=== PATIENT | male | born 1975 | race Caucasian/White ===

== ENCOUNTER 2016-04-07 03:58 | Emergency (ER) | payer OTHER ==
[2016-04-07 06:19] LABS: BASO % 0.2 % (0.0-1.0); EOS # 0.2 K/mm3 (0.0-0.50); EOS % 0.9 % (0.0-3.0); LARGE UNSTAINED CELL # 0.2 K/mm3 (0.0-0.4); LARGE UNSTAINED CELL % 0.9 % (0.0-4.0); LYMPH # 1.2 K/mm3 (1.5-4.5); LYMPH % 6.9 % (24.0-44.0); MEAN CORPUSCULAR HEMOGLOBIN 29.8 pg (27.0-33.0); MEAN CORPUSCULAR HGB CONC 35.2 g/dl (32.0-36.5); MEAN CORPUSCULAR VOLUME 84.5 fl (80.0-96.0); MONO # 0.6 K/mm3 (0.0-0.8); MONO % 3.6 % (0.0-5.0); NEUTROPHILS # 14.7 K/mm3 (1.8-7.7); NEUTROPHILS % 87.5 % (36.0-66.0); PLATELET COUNT, AUTOMATED 353 k/mm3 (150-450); RED CELL DISTRIBUTION WIDTH 12.2 % (11.5-14.5); WHITE BLOOD COUNT 16.8 K/mm3 (4.0-10.0)
[2016-04-07] MEDS ORDERED: KETOROLAC 30 MG/ML VIAL (J1885) As Ordered ONE (06:25)
[2016-04-07] MEDS ORDERED: COLCHICINE 0.6 MG TAB As Ordered ONE ×2 (06:25→07:15)
[2016-04-07 06:38] LABS: ANION GAP 9 MEQ/L (8-16); BLOOD UREA NITROGEN 16 MG/DL (7-18); CALCIUM LEVEL 9.6 MG/DL (8.5-10.1); CARBON DIOXIDE LEVEL 27 MEQ/L (21-32); CHLORIDE LEVEL 102 MEQ/L (98-107); CREATININE FOR GFR 1.14 MG/DL (0.70-1.30); GLOMERULAR FILTRATION RATE > 60.0 (>60); GLUCOSE, FASTING 146 MG/DL (70-105); POTASSIUM SERUM 4.5 MEQ/L (3.5-5.1); SODIUM LEVEL 138 MEQ/L (136-145); URIC ACID 8.3 MG/DL (3.5-7.2)
--- NOTE | 2016-04-07 07:23 | EDDOCDS ---
Physician Documentation [facility] Name: Channing Stock Age: 40 yrs Sex: Male : 1975 Arrival Date: 04/07/2016 Time: 03:58 Bed 10 Private MD: Disposition: 04/07/16 07:04 Discharged to Home/Self Care. Impression: Gout - Gout of Left Hand and Wrist. Foreign body adjacent to 1st MTP joint of Left Hand.. - Condition is Stable. - Discharge Instructions: Gout, Gout, [id number]. - Prescriptions for indomethacin 50 mg Oral Capsule - take 1 capsule by ORAL route 3 times per day with food; 30 capsule. - Medication Reconciliation, Local Pharmacy Hours form. - Follow up: Froy Carlin MD; When: Call to arrange an appointment; Reason: Recheck today's complaints, Continuance of care, To establish care. Follow up: [facility]; When: Call to arrange an appointment; Reason: Recheck today's complaints, Continuance of care. - Problem is an acute exacerbation. - Symptoms have improved. Historical: - Allergies: PENICILLINS; - Home Meds: 1. Worthy Supplement 1 tab twice a day (Last dose: 04/06/2016) - PMHx: Gout; - PSHx: none; - Social history: Smoking status: Patient states former smoker of tobacco. No barriers to communication noted, The patient speaks fluent Pashto, Speaks appropriately for age. - : The pt / caregiver states he / she is not on anticoagulants. Home medication list is obtained from the patient. - Exposure Risk Screening:: None identified. Vital Signs: 04/07 04:12 BP 146 / 91; Pulse 86; Resp 18; Temp 98.9(O); Pulse Ox 96% on R/A; Weight 86.18 kg / kmg1 189.99 lbs (R); Height 5 ft. 9 in. (175.26 cm) (R); Pain 10/10; 07:20 BP 134 / 86; Pulse 93; Resp 18; Temp 99(O); Pulse Ox 97% on R/A; Pain 5/10; jjr 04:12 Body Mass Index 28.06 (86.18 kg, 175.26 cm) kmg1 MDM: 05:54 ketorolac 60 mg IM once ordered. gk1 05:54 colchicine 1.2 mg PO once ordered. gk1 05:58 Financial registration complete. hs2 05:58 CRP Ordered. EDMS 05:58 CBC with Diff Ordered. EDMS 05:58 BMP Ordered. EDMS 05:58 Uric Acid Ordered. EDMS 05:59 Hand, Complete Ordered. EDMS 06:43 CRP Reviewed. mm11 06:43 CBC with Diff Reviewed. mm11 06:43 BMP Reviewed. mm11 06:43 Uric Acid Reviewed. mm11 07:00 colchicine 0.6 mg PO once ordered. gk1 Administered Medications: 06:30 Drug: ketorolac 60 mg [ketorolac 30 mg/mL (1 mL) injection solution (2 mL)] Route: IM; kas2 Site: right deltoid; 06:30 Drug: colchicine 1.2 mg Route: PO; kas2 07:20 Drug: colchicine 0.6 mg Route: PO; ejjr Signatures: Dispatcher [employer] EDYvette Blood RN RN kmg1 Joshua Coronel, DO DO mm11 Ale Cho RN RN jjr Ginette Vogel, Reg Reg hs2 Rolly Mahmood, DO DO gk1 Celeste Johansen RN kas2 MTDD
--- NOTE | 2016-04-07 07:23 | EDDOCDS ---
Nurse's Notes [facility] Name: Channing Stock Age: 40 yrs Sex: Male : 1975 Arrival Date: 04/07/2016 Time: 03:58 Bed 10 Private MD: Diagnosis: Gout-Gout of Left Hand and Wrist. Foreign body adjacent to 1st MTP joint of Left Hand. Presentation: 04/07 04:09 Presenting complaint: Patient states: "My gout flared up." Has been worsening over the km last 5 days. Tonight unable to move left wrist without pain. Suicide/Homicide risk assessment- the patient denies having any suicidal and/or homicidal ideations and does not present with any other emotional, behavioral or mental health complaints. 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 Transition of care: patient was not received from another setting of care. 04:09 Acuity: VICTORINO Level 4 [facility] [place]:09 Method Of Arrival: Walkin/Carried/Asstd [facility] 07:21 Adult Sepsis Screening: The patient does not have new or worsening altered mentation. jjr Patient's respiratory rate is less than 22. Systolic blood pressure is greater than 100. Patient has a qSOFA score of 0- Negative Sepsis Screen. Triage Assessment: 04:12 General: Appears in no apparent distress, uncomfortable, Behavior is appropriate for [facility] age, cooperative, pleasant. Pain: Location: dorsal aspect of left wrist and palmar aspect of left wrist Pain currently is 10 out of 10 on a pain scale. Quality of pain is described as sharp. HIV screening NA for this visit Offered previously. Musculoskeletal: Circulation, motion, and sensation intact Capillary refill < 3 seconds Reports pain in lateral aspect of left wrist and medial aspect of left wrist. Historical: - Allergies: PENICILLINS; - Home Meds: 1. Worthy Supplement 1 tab twice a day (Last dose: 04/06/2016) - PMHx: Gout; - PSHx: none; - Social history: Smoking status: Patient states former smoker of tobacco. No barriers to communication noted, The patient speaks fluent French, Speaks appropriately for age. - : The pt / caregiver states he / she is not on anticoagulants. Home medication list is obtained from the patient. - Exposure Risk Screening:: None identified. Screenin:24 Screening information is obtained from the patient. Fall risk: No risks identified. kas2 Assistance ADL's: requires no assistance with activities of daily living. Abuse/DV Screen: The patient / caregiver reports he/she is: not in a situation that causes fear, pain or injury. Nutritional screening: No deficits noted. Advance Directives: Currently, there is no health care proxy. There is no active DNR order. There is no living will. There is no Power of Ampoule Sealer. home support is adequate. Assessment: 04:23 General: Appears in no apparent distress, uncomfortable, well nourished, well groomed, [facility] Behavior is appropriate for age, cooperative. Pain: Location: medial aspect of left wrist and lateral aspect of left wrist and left hand and palmar aspect of left wrist and dorsal aspect of left wrist Pain currently is 7 out of 10 on a pain scale. Neurological: Level of Consciousness is awake, alert, Oriented to person, place, time. Cardiovascular: Rhythm is regular. Respiratory: Airway is patent Respiratory effort is even, unlabored, Respiratory pattern is regular, symmetrical, Breath sounds are clear bilaterally. Derm: Skin is intact, Skin is dry, Skin is pink, warm & dry. Skin temperature is warm. Musculoskeletal: Circulation, motion, and sensation intact Capillary refill < 3 seconds Range of motion limited in medial aspect of left wrist and lateral aspect of left wrist and left hand and palmar aspect of left wrist and dorsal aspect of left wrist. Injury Description: No known injury. 05:45 General: Patient sitting in bed. No apparent distress noted. Appears comfortable at [facility] this time. Call herzog within reach. Will continue to monitor.. 06:30 General: Appears in no apparent distress, uncomfortable, Behavior is appropriate for [facility] age, cooperative. Pain: Location: medial aspect of left wrist and lateral aspect of left wrist and left hand and palmar aspect of left wrist and dorsal aspect of left wrist Pain currently is 4 out of 10 on a pain scale. Neurological: Level of Consciousness is awake, alert, Oriented to person, place, time. Respiratory: Airway is patent Respiratory effort is even, unlabored, Respiratory pattern is regular, symmetrical. Derm: Skin is intact, Skin is dry, Skin is pink, warm & dry. Skin temperature is warm. 07:21 General: Appears in no apparent distress, Behavior is appropriate for age. Pain: jjr Location: dorsal aspect of left wrist and palmar aspect of left wrist Pain currently is 5 out of 10 on a pain scale. Vital Signs: 04:12 BP 146 / 91; Pulse 86; Resp 18; Temp 98.9(O); Pulse Ox 96% on R/A; Weight 86.18 kg (R); [facility] Height 5 ft. 9 in. (175.26 cm) (R); Pain 10/10; 07:20 BP 134 / 86; Pulse 93; Resp 18; Temp 99(O); Pulse Ox 97% on R/A; Pain 5/10; jjr 04:12 Body Mass Index 28.06 (86.18 kg, 175.26 cm) [facility] Vitals: 04:12 Log In Time: April 07, 2016 at 04:00. [facility] ED Course: 03:59 Patient visited by Ginette Vogel Reg. hs2 03:59 Patient moved to Waiting hs2 04:11 Triage Initiated [facility] 04:16 Patient visited by Yvette Leahy RN. [facility] 04:16 Patient moved to 10 km 04:25 Patient visited by Celeste Johansen RN. kas2 04:28 Celeste Johansen RN is Primary Nurse. kas2 05:04 Patient visited by Celeste Johansen RN. kas2 05:28 Rolly Mahmood DO is PHCP. gk1 05:28 Joshua Coronel DO is Attending Physician. gk1 05:43 Patient visited by Celeste Johansen RN. kas2 05:46 Patient visited by Celeste Johansen RN. kas2 05:55 Patient visited by Joshua Coronel DO. mm11 06:13 Uric Acid Sent. mdr 06:13 BMP Sent. mdr 06:13 CBC with Diff Sent. mdr 06:13 CRP Sent. mdr 06:31 Patient visited by Celeste Johansen RN. kas2 06:54 Patient visited by Celeste Johansen RN. kas2 07:01 Froy Carlin MD is Referral Physician. gk1 07:02 [facility] is Referral Physician. gk1 07:21 No IV's were initiated during this patient's visit. No procedures done that require jjr assistance. 07:22 The patient / caregiver is instructed regarding the plan of care and ED course. jjr Administered Medications: 06:30 Drug: ketorolac 60 mg [ketorolac 30 mg/mL (1 mL) injection solution (2 mL)] Route: IM; [facility] Site: right deltoid; 06:30 Drug: colchicine 1.2 mg Route: PO; [facility] 07:20 Drug: colchicine 0.6 mg Route: PO; jjr Order Results: Lab Order: CRP; SPEC04/07/16 06:09 Test: C REACTIVE PROTEIN QUANTITATIV; Value: 2.74; Range: 0.00-0.30; Abnormal: Above high normal; Units: MG/DL; Status: F Lab Order: CBC with Diff; 04/07/16 06:09 Test: WHITE BLOOD COUNT; Value: 16.8; Range: 4.0-10.0; Abnormal: Above high normal; Units: K/mm3; Status: F Test: RED BLOOD COUNT; Value: 5.86; Range: 4.30-6.10; Units: M/mm3; Status: F Test: HEMOGLOBIN; Value: 17.4; Range: 14.0-18.0; Units: g/dl; Status: F Test: HEMATOCRIT; Value: 49.5; Range: 42.0-52.0; Units: %; Status: F Test: MEAN CORPUSCULAR VOLUME; Value: 84.5; Range: 80.0-96.0; Units: fl; Status: F Test: MEAN CORPUSCULAR HEMOGLOBIN; Value: 29.8; Range: 27.0-33.0; Units: pg; Status: F Test: MEAN CORPUSCULAR HGB CONC; Value: 35.2; Range: 32.0-36.5; Units: g/dl; Status: F Test: RED CELL DISTRIBUTION WIDTH; Value: 12.2; Range: 11.5-14.5; Units: %; Status: F Test: PLATELET COUNT, AUTOMATED; Value: 353; Range: 150-450; Units: k/mm3; Status: F Test: NEUTROPHILS %; Value: 87.5; Range: 36.0-66.0; Abnormal: Above high normal; Units: %; Status: F Test: LYMPH %; Value: 6.9; Range: 24.0-44.0; Abnormal: Below low normal; Units: %; Status: F Test: MONO %; Value: 3.6; Range: 0.0-5.0; Units: %; Status: F Test: EOS %; Value: 0.9; Range: 0.0-3.0; Units: %; Status: F Test: BASO %; Value: 0.2; Range: 0.0-1.0; Units: %; Status: F Test: LARGE UNSTAINED CELL %; Value: 0.9; Range: 0.0-4.0; Units: %; Status: F Test: NEUTROPHILS #; Value: 14.7; Range: 1.8-7.7; Abnormal: Above high normal; Units: K/mm3; Status: F Test: LYMPH #; Value: 1.2; Range: 1.5-4.5; Abnormal: Below low normal; Units: K/mm3; Status: F Test: MONO #; Value: 0.6; Range: 0.0-0.8; Units: K/mm3; Status: F Test: EOS #; Value: 0.2; Range: 0.0-0.50; Units: K/mm3; Status: F Test: BASO #; Value: 0.0; Range: 0.0-0.2; Units: K/mm3; Status: F Test: LARGE UNSTAINED CELL #; Value: 0.2; Range: 0.0-0.4; Units: K/mm3; Status: F Lab Order: [facility]; SPEC'M 04/07/16 06:09 Test: GLUCOSE, FASTING; Value: 146; Range: 70-105; Abnormal: Above high normal; Units: MG/DL; Status: F Test: BLOOD UREA NITROGEN; Value: 16; Range: 7-18; Units: MG/DL; Status: F Test: CREATININE FOR GFR; Value: 1.14; Range: 0.70-1.30; Units: MG/DL; Status: F Test: GLOMERULAR FILTRATION RATE; Value: > 60.0; Range: >60; Status: F Test: SODIUM LEVEL; Value: 138; Range: 136-145; Units: MEQ/L; Status: F Test: POTASSIUM SERUM; Value: 4.5; Range: 3.5-5.1; Units: MEQ/L; Status: F Test: CHLORIDE LEVEL; Value: 102; Range: 98-107; Units: MEQ/L; Status: F Test: CARBON DIOXIDE LEVEL; Value: 27; Range: 21-32; Units: MEQ/L; Status: F Test: ANION GAP; Value: 9; Range: 8-16; Units: MEQ/L; Status: F Test: CALCIUM LEVEL; Value: 9.6; Range: 8.5-10.1; Units: MG/DL; Status: F Test Note: ; Units are mL/min/1.73 m2 Chronic Kidney Disease Staging per NKF: Stage I & II GFR >=60 Normal to Mildly Decreased Stage III GFR 30-59 Moderately Decreased Stage IV GFR 15-29 Severely Decreased Stage V GFR <15 Very Little GFR Left ESRD GFR <15 on PATIENT CARRIER Lab Order: Uric Acid; SPEC'M 04/07/16 06:09 Test: URIC ACID; Value: 8.3; Range: 3.5-7.2; Abnormal: Above high normal; Units: MG/DL; Status: F Outcome: 07:04 Discharge ordered by Provider. gk1 07:21 Discharge Assessment: patient administered narcotics - no. The following High Risk jjr Discharge criteria are identified: None. Discharged to home ambulatory. Condition: stable. Discharge instructions given to patient, Instructed on discharge instructions, follow up and referral plans. medication usage, Demonstrated understanding of instructions, medications, Prescriptions given X 1. No special radiology studies were completed. Property sent home with patient. 07:22 Patient left the ED. jjr Signatures: Yvette Leahy, RN RN kmg1 Joshua Coronel, DO DO mm11 Ale Cho RN RN Duy Gibson, CELL OPERATION SUPERVISOR CELL OPERATION SUPERVISOR mdr Ginette Vogel, Reg Reg hs2 Celeste Johansen RN RN kas2 Rolly Mahmood, DO DO gk1 MTDD
--- NOTE | 2016-04-07 14:18 | REP ---
LEFT HAND SERIES, COMPLETE: 04/07/2016. Clinical history: Pain. States known metallic foreign body adjacent to first MCP joint. Findings: No prior studies. There are old post-traumatic changes of the carpal bones with a transverse fracture through the waist of the scaphoid. Sclerosis of the distal fragment noted to a mild degree but no evidence of sclerosis of the proximal pole of the scaphoid. There are degenerative changes at the first CMC joint and sclerosis along the fracture lines at the waist of the scaphoid. No other fracture, subluxation or dislocation. The metacarpals, phalanges and their associated joints intact. No acute fracture of the radius or ulna. Impression: 1. 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 2. Minor degenerative changes other carpal joint spaces and incidental note made of a tiny metallic foreign body near the distal head of the first metacarpal at the MCP joint with in the subcutaneous tissues. Signed by Mitch Hahn MD 04/07/2016 07:26 P
--- NOTE | 2016-04-09 08:23 | EDDOCDS ---
Physician Documentation [facility] Name: Channing Stock Age: 40 yrs Sex: Male : 1975 Arrival Date: 04/07/2016 Time: 03:58 Bed 10 Private MD: Disposition: 04/07 07:27 I have independently interviewed and examined the patient, and I agree with the mm11 investigation, diagnosis and treatment plan as documented by the Resident. Disposition: 04/07/16 07:04 Discharged to Home/Self Care. Impression: Gout - Gout of Left Hand and Wrist. Foreign body adjacent to 1st MTP joint of Left Hand.. - Condition is Stable. - Discharge Instructions: Gout, Gout, [id number]. - Prescriptions for indomethacin 50 mg Oral Capsule - take 1 capsule by ORAL route 3 times per day with food; 30 capsule. - Medication Reconciliation, Local Pharmacy Hours form. - Follow up: Froy Carlin MD; When: Call to arrange an appointment; Reason: Recheck today's complaints, Continuance of care, To establish care. Follow up: [facility]; When: Call to arrange an appointment; Reason: Recheck today's complaints, Continuance of care. - Problem is an acute exacerbation. - Symptoms have improved. Historical: - Allergies: PENICILLINS; - Home Meds: 1. Worthy Supplement 1 tab twice a day (Last dose: 04/06/2016) - PMHx: Gout; - PSHx: none; - Social history: Smoking status: Patient states former smoker of tobacco. No barriers to communication noted, The patient speaks fluent Vietnamese, Speaks appropriately for age. - : The pt / caregiver states he / she is not on anticoagulants. Home medication list is obtained from the patient. - Exposure Risk Screening:: None identified. Vital Signs: 04:12 BP 146 / 91; Pulse 86; Resp 18; Temp 98.9(O); Pulse Ox 96% on R/A; Weight 86.18 kg / kmg1 189.99 lbs (R); Height 5 ft. 9 in. (175.26 cm) (R); Pain 10/10; 07:20 BP 134 / 86; Pulse 93; Resp 18; Temp 99(O); Pulse Ox 97% on R/A; Pain 5/10; jjr 04:12 Body Mass Index 28.06 (86.18 kg, 175.26 cm) kmg1 MDM: 05:54 ketorolac 60 mg IM once ordered. gk1 05:54 colchicine 1.2 mg PO once ordered. gk1 05:58 Financial registration complete. hs2 05:58 CRP Ordered. EDMS 05:58 CBC with Diff Ordered. EDMS 05:58 BMP Ordered. EDMS 05:58 Uric Acid Ordered. EDMS 05:59 Hand, Complete Ordered. EDMS 06:43 CRP Reviewed. mm11 06:43 CBC with Diff Reviewed. mm11 06:43 BMP Reviewed. mm11 06:43 Uric Acid Reviewed. mm11 07:00 colchicine 0.6 mg PO once ordered. gk1 07:31 [facility] [place] was scanned into [employer] and attached to record. hs2 04/08 14:31 T-Sheet-- Draft Copy was scanned into [employer] and attached to record. gb Administered Medications: 04/07 06:30 Drug: ketorolac 60 mg [ketorolac 30 mg/mL (1 mL) injection solution (2 mL)] Route: IM; kas2 Site: right deltoid; 06:30 Drug: colchicine 1.2 mg Route: PO; kas2 07:20 Drug: colchicine 0.6 mg Route: PO; jjr Signatures: Dispatcher [employer] Yvette Lopez RN RN kmg1 Tamar Johnson, Reg Reg gb Joshua Coronel, DO DO mm11 Ale Cho RN RN jjr Ginette Vogel, Reg Reg hs2 Rolly Mahmood, DO DO gk1 Celeste Johansen RN kas2 The chart was reviewed and I authenticate all verbal orders and agree with the evaluation and treatment provided.Attachments: 07:31 [facility] [place] Agreement hs2 04/08 14:31 T-Sheet-- Draft Copy gb Chart Complete MTDD
--- NOTE | 2016-04-09 08:23 | EDDOCDS ---
Physician Documentation [facility] Name: Channing Stock Age: 40 yrs Sex: Male : 1975 Arrival Date: 04/07/2016 Time: 03:58 Bed 10 Private MD: Disposition: 04/07 07:27 I have independently interviewed and examined the patient, and I agree with the mm11 investigation, diagnosis and treatment plan as documented by the Resident. Disposition: 04/07/16 07:04 Discharged to Home/Self Care. Impression: Gout - Gout of Left Hand and Wrist. Foreign body adjacent to 1st MTP joint of Left Hand.. - Condition is Stable. - Discharge Instructions: Gout, Gout, [id number]. - Prescriptions for indomethacin 50 mg Oral Capsule - take 1 capsule by ORAL route 3 times per day with food; 30 capsule. - Medication Reconciliation, Local Pharmacy Hours form. - Follow up: Froy Carlin MD; When: Call to arrange an appointment; Reason: Recheck today's complaints, Continuance of care, To establish care. Follow up: [facility]; When: Call to arrange an appointment; Reason: Recheck today's complaints, Continuance of care. - Problem is an acute exacerbation. - Symptoms have improved. Historical: - Allergies: PENICILLINS; - Home Meds: 1. Worthy Supplement 1 tab twice a day (Last dose: 04/06/2016) - PMHx: Gout; - PSHx: none; - Social history: Smoking status: Patient states former smoker of tobacco. No barriers to communication noted, The patient speaks fluent Divehi, Speaks appropriately for age. - : The pt / caregiver states he / she is not on anticoagulants. Home medication list is obtained from the patient. - Exposure Risk Screening:: None identified. Vital Signs: 04:12 BP 146 / 91; Pulse 86; Resp 18; Temp 98.9(O); Pulse Ox 96% on R/A; Weight 86.18 kg / kmg1 189.99 lbs (R); Height 5 ft. 9 in. (175.26 cm) (R); Pain 10/10; 07:20 BP 134 / 86; Pulse 93; Resp 18; Temp 99(O); Pulse Ox 97% on R/A; Pain 5/10; jjr 04:12 Body Mass Index 28.06 (86.18 kg, 175.26 cm) kmg1 MDM: 05:54 ketorolac 60 mg IM once ordered. gk1 05:54 colchicine 1.2 mg PO once ordered. gk1 05:58 Financial registration complete. hs2 05:58 CRP Ordered. EDMS 05:58 CBC with Diff Ordered. EDMS 05:58 BMP Ordered. EDMS 05:58 Uric Acid Ordered. EDMS 05:59 Hand, Complete Ordered. EDMS 06:43 CRP Reviewed. mm11 06:43 CBC with Diff Reviewed. mm11 06:43 BMP Reviewed. mm11 06:43 Uric Acid Reviewed. mm11 07:00 colchicine 0.6 mg PO once ordered. gk1 07:31 [facility] Payment Agreement was scanned into [employer] and attached to record. hs2 04/08 14:31 T-Sheet-- Draft Copy was scanned into [employer] and attached to record. gb Administered Medications: 04/07 06:30 Drug: ketorolac 60 mg [ketorolac 30 mg/mL (1 mL) injection solution (2 mL)] Route: IM; kas2 Site: right deltoid; 06:30 Drug: colchicine 1.2 mg Route: PO; kas2 07:20 Drug: colchicine 0.6 mg Route: PO; jjr Signatures: Dispatcher [employer] Yvette Lopez RN RN kmg1 Tamar Johnson, Reg Reg gb Joshua Coronel, DO DO mm11 Ale Cho RN RN jjr Ginette Vogel, Reg Reg hs2 Rolly Mahmood, DO DO gk1 Celeste Johansen RN kas2 The chart was reviewed and I authenticate all verbal orders and agree with the evaluation and treatment provided.Attachments: 07:31 [facility] Payment Agreement hs2 04/08 14:31 T-Sheet-- Draft Copy gb Chart Complete MTDD
--- NOTE | 2016-04-09 08:23 | EDDOCDS ---
Nurse's Notes [facility] Name: Channing Stock Age: 40 yrs Sex: Male : 1975 Arrival Date: 04/07/2016 Time: 03:58 Bed 10 Private MD: Diagnosis: Gout-Gout of Left Hand and Wrist. Foreign body adjacent to 1st MTP joint of Left Hand. Presentation: 04/07 04:09 Presenting complaint: Patient states: "My gout flared up." Has been worsening over the km last 5 days. Tonight unable to move left wrist without pain. Suicide/Homicide risk assessment- the patient denies having any suicidal and/or homicidal ideations and does not present with any other emotional, behavioral or mental health complaints. Status: Patient is not a support services specialist or dependent. Transition of care: patient was not received from another setting of care. 04:09 Acuity: [facility] [place] 04:09 Method Of Arrival: Walkin/Carried/[facility] [place] 07:21 Adult Sepsis Screening: The patient does not have new or worsening altered mentation. jjr Patient's respiratory rate is less than 22. Systolic blood pressure is greater than 100. Patient has a qSOFA score of 0- Negative Sepsis Screen. Triage Assessment: 04:12 General: Appears in no apparent distress, uncomfortable, Behavior is appropriate for [facility] [place] age, cooperative, pleasant. Pain: Location: dorsal aspect of left wrist and palmar aspect of left wrist Pain currently is 10 out of 10 on a pain scale. Quality of pain is described as sharp. HIV screening NA for this visit Offered previously. Musculoskeletal: Circulation, motion, and sensation intact Capillary refill < 3 seconds Reports pain in lateral aspect of left wrist and medial aspect of left wrist. Historical: - Allergies: PENICILLINS; - Home Meds: 1. Worthy Supplement 1 tab twice a day (Last dose: 04/06/2016) - PMHx: Gout; - PSHx: none; - Social history: Smoking status: Patient states former smoker of tobacco. No barriers to communication noted, The patient speaks fluent Telugu, Speaks appropriately for age. - : The pt / caregiver states he / she is not on anticoagulants. Home medication list is obtained from the patient. - Exposure Risk Screening:: None identified. Screenin:24 Screening information is obtained from the patient. Fall risk: No risks identified. kas2 Assistance ADL's: requires no assistance with activities of daily living. Abuse/DV Screen: The patient / caregiver reports he/she is: not in a situation that causes fear, pain or injury. Nutritional screening: No deficits noted. Advance Directives: Currently, there is no health care proxy. There is no active DNR order. There is no living will. There is no Power of Cartridge Feeder. home support is adequate. Assessment: 04:23 General: Appears in no apparent distress, uncomfortable, well nourished, well groomed, [facility] Behavior is appropriate for age, cooperative. Pain: Location: medial aspect of left wrist and lateral aspect of left wrist and left hand and palmar aspect of left wrist and dorsal aspect of left wrist Pain currently is 7 out of 10 on a pain scale. Neurological: Level of Consciousness is awake, alert, Oriented to person, place, time. Cardiovascular: Rhythm is regular. Respiratory: Airway is patent Respiratory effort is even, unlabored, Respiratory pattern is regular, symmetrical, Breath sounds are clear bilaterally. Derm: Skin is intact, Skin is dry, Skin is pink, warm & dry. Skin temperature is warm. Musculoskeletal: Circulation, motion, and sensation intact Capillary refill < 3 seconds Range of motion limited in medial aspect of left wrist and lateral aspect of left wrist and left hand and palmar aspect of left wrist and dorsal aspect of left wrist. Injury Description: No known injury. 05:45 General: Patient sitting in bed. No apparent distress noted. Appears comfortable at [facility] this time. Call herzog within reach. Will continue to monitor.. 06:30 General: Appears in no apparent distress, uncomfortable, Behavior is appropriate for [facility] age, cooperative. Pain: Location: medial aspect of left wrist and lateral aspect of left wrist and left hand and palmar aspect of left wrist and dorsal aspect of left wrist Pain currently is 4 out of 10 on a pain scale. Neurological: Level of Consciousness is awake, alert, Oriented to person, place, time. Respiratory: Airway is patent Respiratory effort is even, unlabored, Respiratory pattern is regular, symmetrical. Derm: Skin is intact, Skin is dry, Skin is pink, warm & dry. Skin temperature is warm. 07:21 General: Appears in no apparent distress, Behavior is appropriate for age. Pain: jjr Location: dorsal aspect of left wrist and palmar aspect of left wrist Pain currently is 5 out of 10 on a pain scale. Vital Signs: 04:12 BP 146 / 91; Pulse 86; Resp 18; Temp 98.9(O); Pulse Ox 96% on R/A; Weight 86.18 kg (R); [facility] [place] Height 5 ft. 9 in. (175.26 cm) (R); Pain 10/10; 07:20 BP 134 / 86; Pulse 93; Resp 18; Temp 99(O); Pulse Ox 97% on R/A; Pain 5/10; jjr 04:12 Body Mass Index 28.06 (86.18 kg, 175.26 cm) [facility] [place] Vitals: 04:12 Log In Time: April 07, 2016 at 04:00. [facility] ED Course: 03:59 Patient visited by Ginette Vogel Reg. hs2 03:59 Patient moved to Waiting hs2 04:11 Triage Initiated [facility] [place] [place] 04:16 Patient visited by Yvette Leahy RN. [facility] 04:16 Patient moved to 10 km 04:25 Patient visited by Celeste Johansen RN. kas2 04:28 Celeste Johansen RN is Primary Nurse. kas2 05:04 Patient visited by Celeste Johansen RN. kas2 05:28 Rolly Mahmood DO is PHCP. gk1 05:28 Joshua Coronel DO is Attending Physician. gk1 05:43 Patient visited by Celeste Johansen RN. kas2 05:46 Patient visited by Celeste Johansen RN. kas2 05:55 Patient visited by Joshua Coronel DO. mm11 06:13 Uric Acid Sent. mdr 06:13 BMP Sent. mdr 06:13 CBC with Diff Sent. mdr 06:13 CRP Sent. mdr 06:31 Patient visited by Celeste Johansen RN. kas2 06:54 Patient visited by Celeste Johansen RN. kas2 07:01 Froy Carlin MD is Referral Physician. gk1 07:02 [facility] is Referral Physician. gk1 07:21 No IV's were initiated during this patient's visit. No procedures done that require jjr assistance. 07:22 The patient / caregiver is instructed regarding the plan of care and ED course. jjr 07:31 [facility] Payment Agreement was scanned into [employer] and attached to record. hs2 14:32 Hand, Complete Returned. EDMS 04/08 14:31 T-Sheet-- Draft Copy was scanned into [employer] and attached to record. gb Administered Medications: 04/07 06:30 Drug: ketorolac 60 mg [ketorolac 30 mg/mL (1 mL) injection solution (2 mL)] Route: IM; kas2 Site: right deltoid; 06:30 Drug: colchicine 1.2 mg Route: PO; kas2 07:20 Drug: colchicine 0.6 mg Route: PO; jjr Order Results: Lab Order: CRP; SPEC'M 04/07/16 06:09 Test: C REACTIVE PROTEIN QUANTITATIV; Value: 2.74; Range: 0.00-0.30; Abnormal: Above high normal; Units: MG/DL; Status: F Lab Order: CBC with Diff; SPEC'M 04/07/16 06:09 Test: WHITE BLOOD COUNT; Value: 16.8; Range: 4.0-10.0; Abnormal: Above high normal; Units: K/mm3; Status: F Test: RED BLOOD COUNT; Value: 5.86; Range: 4.30-6.10; Units: M/mm3; Status: F Test: HEMOGLOBIN; Value: 17.4; Range: 14.0-18.0; Units: g/dl; Status: F Test: HEMATOCRIT; Value: 49.5; Range: 42.0-52.0; Units: %; Status: F Test: MEAN CORPUSCULAR VOLUME; Value: 84.5; Range: 80.0-96.0; Units: fl; Status: F Test: MEAN CORPUSCULAR HEMOGLOBIN; Value: 29.8; Range: 27.0-33.0; Units: pg; Status: F Test: MEAN CORPUSCULAR HGB CONC; Value: 35.2; Range: 32.0-36.5; Units: g/dl; Status: F Test: RED CELL DISTRIBUTION WIDTH; Value: 12.2; Range: 11.5-14.5; Units: %; Status: F Test: PLATELET COUNT, AUTOMATED; Value: 353; Range: 150-450; Units: k/mm3; Status: F Test: NEUTROPHILS %; Value: 87.5; Range: 36.0-66.0; Abnormal: Above high normal; Units: %; Status: F Test: LYMPH %; Value: 6.9; Range: 24.0-44.0; Abnormal: Below low normal; Units: %; Status: F Test: MONO %; Value: 3.6; Range: 0.0-5.0; Units: %; Status: F Test: EOS %; Value: 0.9; Range: 0.0-3.0; Units: %; Status: F Test: BASO %; Value: 0.2; Range: 0.0-1.0; Units: %; Status: F Test: LARGE UNSTAINED CELL %; Value: 0.9; Range: 0.0-4.0; Units: %; Status: F Test: NEUTROPHILS #; Value: 14.7; Range: 1.8-7.7; Abnormal: Above high normal; Units: K/mm3; Status: F Test: LYMPH #; Value: 1.2; Range: 1.5-4.5; Abnormal: Below low normal; Units: K/mm3; Status: F Test: MONO #; Value: 0.6; Range: 0.0-0.8; Units: K/mm3; Status: F Test: EOS #; Value: 0.2; Range: 0.0-0.50; Units: K/mm3; Status: F Test: BASO #; Value: 0.0; Range: 0.0-0.2; Units: K/mm3; Status: F Test: LARGE UNSTAINED CELL #; Value: 0.2; Range: 0.0-0.4; Units: K/mm3; Status: F Lab Order: [facility]; SPEC'M 04/07/16 06:09 Test: GLUCOSE, FASTING; Value: 146; Range: 70-105; Abnormal: Above high normal; Units: MG/DL; Status: F Test: BLOOD UREA NITROGEN; Value: 16; Range: 7-18; Units: MG/DL; Status: F Test: CREATININE FOR GFR; Value: 1.14; Range: 0.70-1.30; Units: MG/DL; Status: F Test: GLOMERULAR FILTRATION RATE; Value: > 60.0; Range: >60; Status: F Test: SODIUM LEVEL; Value: 138; Range: 136-145; Units: MEQ/L; Status: F Test: POTASSIUM SERUM; Value: 4.5; Range: 3.5-5.1; Units: MEQ/L; Status: F Test: CHLORIDE LEVEL; Value: 102; Range: 98-107; Units: MEQ/L; Status: F Test: CARBON DIOXIDE LEVEL; Value: 27; Range: 21-32; Units: MEQ/L; Status: F Test: ANION GAP; Value: 9; Range: 8-16; Units: MEQ/L; Status: F Test: CALCIUM LEVEL; Value: 9.6; Range: 8.5-10.1; Units: MG/DL; Status: F Test Note: ; Units are mL/min/1.73 m2 Chronic Kidney Disease Staging per NKF: Stage I & II GFR >=60 Normal to Mildly Decreased Stage III GFR 30-59 Moderately Decreased Stage IV GFR 15-29 Severely Decreased Stage V GFR <15 Very Little GFR Left ESRD GFR <15 on BILLIARD TABLE ASSEMBLER Lab Order: Uric Acid; SPEC'M 04/07/16 06:09 Test: URIC ACID; Value: 8.3; Range: 3.5-7.2; Abnormal: Above high normal; Units: MG/DL; Status: F Radiology Order: Hand, Complete Test: Hand, Complete REASON FOR EXAMINATION: Deformity/Swelling; LEFT HAND SERIES, COMPLETE: 04/07/2016.; ; Clinical history: Pain. States known metallic foreign body adjacent to first; MCP joint.; ; Findings: No prior studies. There are old post-traumatic changes of the carpal; bones with a transverse fracture through the waist of the scaphoid. Sclerosis of; the distal fragment noted to a mild degree but no evidence of sclerosis of the; proximal pole of the scaphoid. There are degenerative changes at the first CMC; joint and sclerosis along the fracture lines at the waist of the scaphoid. No; other fracture, subluxation or dislocation. The metacarpals, phalanges and their; associated joints intact. No acute fracture of the radius or ulna.; ; Impression:; ; 1. 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 Minor degenerative changes other carpal joint spaces and incidental note made; of a tiny metallic foreign body near the distal head of the first metacarpal at; the MCP joint with in the subcutaneous tissues.; ; ; Signed by; Mitch Hahn MD 04/07/2016 07:26 P; Outcome: 07:04 Discharge ordered by Provider. gk1 07:21 Discharge Assessment: patient administered narcotics - no. The following High Risk jjr Discharge criteria are identified: None. Discharged to home ambulatory. Condition: stable. Discharge instructions given to patient, Instructed on discharge instructions, follow up and referral plans. medication usage, Demonstrated understanding of instructions, medications, Prescriptions given X 1. No special radiology studies were completed. Property sent home with patient. 07:22 Patient left the ED. jjr Signatures: Dispatcher [employer] EDMS Yvette Leahy, RN RN kmg1 Tamar Johnson, Reg Reg gb Joshua Coronel, DO DO mm11 Ale Cho, LOAN RN jjr Duy Antonio, DESKTOP MANAGER DESKTOP MANAGER mdr Ginette Vogel, Reg Reg hs2 Celeste Johansen RN RN kas2 Rolly Mahmood, DO DO gk1 Chart Complete [facility]
== END 2016-04-07 07:22 | disposition home or self-care (01) ==
LOC: M ED 03:58
DX: M10.042 Idiopathic gout, left hand (principal); M10.032 Idiopathic gout, left wrist; M79.5 Residual foreign body in soft tissue; Z87.891 Personal history of nicotine dependence; Z88.0 Allergy status to penicillin
CPT/HCPCS: 36415; 73130; 80048; 84550; 85025; 86140; 96372; 99284; J1885

== ENCOUNTER → 2016-08-14 | Outpatient (CLI) | payer OTHER ==
--- NOTE | 2016-08-15 02:13 | REP ---
Clinical: Cough and fever . Comparison: None . Technique: PA and lateral. Findings: The mediastinum and cardiac silhouette are normal. The lung jean are clear and without acute consolidation, effusion, or pneumothorax. The skeletal structures are intact and normal. Impression: 1. No acute cardiopulmonary process. Signed by Hugh Mccoy MD 08/15/2016 02:05 A
== END ==
LOC: M WUC 12:31
PROVIDERS: ATTEND Physician Assistant
DX: R05 Cough (principal)

== ENCOUNTER 2017-12-04 10:53 | Emergency (ER) | payer OTHER ==
[2017-12-04] MEDS: KETOROLAC 60 MG/2 ML VIAL (J1885) IM (11:14)
== END 2017-12-04 11:50 | disposition home or self-care (01) ==
LOC: M ED 10:53
DX: M25.562 Pain in left knee (principal); I10 Essential (primary) hypertension; M10.9 Gout, unspecified; Z79.899 Other long term (current) drug therapy; Z88.0 Allergy status to penicillin
CPT/HCPCS: J1885

== ENCOUNTER 2017-12-05 17:42 | Emergency (ER) | payer OTHER ==
[2017-12-05 19:14] LABS: URIC ACID 7.9 MG/DL (3.5-7.2)
[2017-12-05 19:29] LABS: ERYTHROCYTE SEDIMENTATION RATE 13 mm/hr (0-15)
[2017-12-05] MEDS: COLCHICINE 0.6 MG TAB PO (20:11)
== END 2017-12-05 20:18 | disposition home or self-care (01) ==
LOC: M ED 17:42
DX: M25.462 Effusion, left knee (principal); M10.9 Gout, unspecified; I10 Essential (primary) hypertension; Z88.0 Allergy status to penicillin; Z87.891 Personal history of nicotine dependence
CPT/HCPCS: 73564

== ENCOUNTER → 2021-12-17 | Outpatient (CLI) | payer SELFPAY ==
[~2021-12-17] MED LIST: COLC0.6T47 PO; IBUP-1022 PO
== END ==
LOC: M OUTALCOH 07:32
PROVIDERS: ATTEND Psychiatry & Neurology Psychiatry
DX: F10.10 Alcohol abuse, uncomplicated (principal)

== ENCOUNTER 2021-12-27 07:57 | Outpatient (RCR) | payer MEDICAID, SELFPAY | END 2022-01-23 | LOC: M OUTALCOH 07:57 | PROVIDERS: ATTEND Psychiatry & Neurology Psychiatry | DX: Z03.89 Encounter for observation for other suspected diseases and conditions ruled out (principal) ==

== ENCOUNTER 2022-12-28 14:38 | Emergency (ER) | payer MEDICAID, SELFPAY ==
[~2022-12-28] VITALS: Ht 175.3 cm; Wt 91.9 kg
[2022-12-28 14:39] VITALS: BP 161/88; TEMP 97.9; O2SAT 99
== END 2022-12-28 16:22 | disposition left against medical advice (07) ==
LOC: M ED 14:38
DX: Z53.21 Procedure and treatment not carried out due to patient leaving prior to being seen by health care provider (principal)